=== PATIENT | male | born 1950 | race Caucasian/White ===

== ENCOUNTER 2019-10-09 13:52 | Outpatient (CLI) | payer OTHER, SELFPAY ==
--- NOTE | ~2019-10-09 | US_ITS ---
EXAMINATION: US aorta DATE: 10/09/2019 14:31 INDICATION: Abdominal aortic aneurysm without rupture. TECHNIQUE: Grayscale, color Doppler, and pulsed Doppler images of the aorta and common iliac arteries were obtained. COMPARISON: Ultrasound 10/04/2017, CT abdomen and pelvis 09/27/2015 FINDINGS: The aorta demonstrates a fusiform infrarenal aneurysm measuring 3.4 cm. The right common iliac artery is normal in caliber. The left common iliac artery is normal in caliber. IMPRESSION: 1. 3.4 cm fusiform infrarenal aortic aneurysm, increased from 3.1 cm on 10/04/2017. Reviewed, dictated and finalized at location A. IMPRESSION: 1. 3.4 cm fusiform infrarenal aortic aneurysm, increased from 3.1 cm on 10/05/19 18.
== END 2019-10-09 13:53 | disposition home or self-care (01) ==
PROVIDERS: PCP Internal Medicine; Visit Provider Internal Medicine
DX: I71.4 Abdominal aortic aneurysm, without rupture (principal)
CPT/HCPCS: 76775